=== PATIENT | male | born 1990 | race Two or more races ===

== ENCOUNTER 2020-10-01 21:38 | Emergency (ER) | payer MEDICAID ==
[~2020-10-01] VITALS: Ht 170.2 cm; Wt 75.7 kg
[2020-10-02 01:28] VITALS: BP 111/62
== END 2020-10-02 02:10 | disposition home or self-care (01) ==
LOC: ER 21:41
DX: L02.416 Cutaneous abscess of left lower limb (principal); L03.116 Cellulitis of left lower limb; F17.210 Nicotine dependence, cigarettes, uncomplicated

== ENCOUNTER 2020-10-07 14:14 | Inpatient (IN) | payer MEDICAID ==
[~2020-10-07] VITALS: Ht 170.2 cm; Wt 72.6 kg
[2020-10-08] MEDS ORDERED: CLINDAMYCIN 600MG IV 50 ML IV ONE (08:15)
[2020-10-08] MEDS ORDERED: KETOROLAC TROMETH 30 MG/ML 1ML VIAL IV ONE (08:15)
[2020-10-08] MEDS ORDERED: cefTRIAXone 1GM/50ML D5W 50 ML IV SCH (09:30)
[2020-10-08] MEDS ORDERED: ONDANSETRON HCL 4 MG/2 ML VIAL IV PRN (09:30)
[2020-10-08] MEDS ORDERED: HYDROcodone-ACET 5/325MG TAB PO PRN (09:30)
[2020-10-08] MEDS ORDERED: LORazepam 2MG/ML-1ML VIAL IV PRN (09:30)
[2020-10-08] MEDS ORDERED: ACETAMINOPHEN 500 MG TAB PO PRN (09:30)
[2020-10-08] MEDS ORDERED: MORPHINE SULF INJ 2 MG/ML SYRINGE 1ML IV PRN (09:30)
[2020-10-08] MEDS ORDERED: FAMOTIDINE 20 MG TAB PO SCH (10:00)
[2020-10-08 13:42] VITALS: BP 105/89
[2020-10-08] MEDS ORDERED: CLINDAMYCIN 300MG IV 50 ML IV SCH (14:00)
--- NOTE | 2020-10-08 16:50 | NUR ---
WOUND CARE NOTE: Wound care attempted to see patient per wound care request regarding LLE Cellult[facility]. Unable to locate patient. Nurse and electrical power station technician made aware.
== END 2020-10-08 17:02 | disposition left against medical advice (07) | DRG 383 ==
LOC: ER 14:14 → OVERFLOW 14:15
PROVIDERS: ADMIT Nurse Practitioner Acute Care; ATTEND Nurse Practitioner Acute Care
DX: L03.116 Cellulitis of left lower limb (principal); F17.210 Nicotine dependence, cigarettes, uncomplicated; Z59.0 Homelessness; L02.416 Cutaneous abscess of left lower limb; F10.10 Alcohol abuse, uncomplicated; Y90.9 Presence of alcohol in blood, level not specified; F12.10 Cannabis abuse, uncomplicated; F11.10 Opioid abuse, uncomplicated
CPT/HCPCS: 71045; 73700; G0378; J3490

== ENCOUNTER 2020-10-09 18:15 | Emergency (ER) | payer MEDICAID | END 2020-10-09 19:38 | disposition left against medical advice (07) | LOC: ER 18:16 | DX: L02.419 Cutaneous abscess of limb, unspecified (principal); Z53.21 Procedure and treatment not carried out due to patient leaving prior to being seen by health care provider ==

== ENCOUNTER 2022-10-01 06:20 | Emergency (ER) | payer MEDICAID ==
[~2022-10-01] VITALS: Ht 167.6 cm; Wt 68.0 kg
[2022-10-01] MEDS ORDERED: IOHEXOL 300 MG/ML 100ML BOTTLE IJ ONE (08:29)
[2022-10-01] MEDS ORDERED: SODIUM CHLORIDE 0.9% 1,000 ML IV ONE (08:30)
[2022-10-01] MEDS ORDERED: ETOMIDATE (2MG/ML) 20ML VIAL IV ONE (08:30)
[2022-10-01] MEDS ORDERED: HYDROcodone-ACET 10/325MG TAB PO ONE (12:00)
[2022-10-01] MEDS ORDERED: IBU600T PO (12:28)
[2022-10-01 13:10] VITALS: BP 127/81
== END 2022-10-01 12:28 | disposition home or self-care (01) ==
LOC: EDBD 06:20 → ER 06:20
DX: S52.502A Unspecified fracture of the lower end of left radius, initial encounter for closed fracture (principal); S52.612A Displaced fracture of left ulna styloid process, initial encounter for closed fracture; F17.210 Nicotine dependence, cigarettes, uncomplicated; F10.90 Alcohol use, unspecified, uncomplicated; F15.90 Other stimulant use, unspecified, uncomplicated; Z59.00 Homelessness unspecified; W18.30XA Fall on same level, unspecified, initial encounter; Y93.01 Activity, walking, marching and hiking; Y92.410 Unspecified street and highway as the place of occurrence of the external cause; Y99.8 Other external cause status
CPT/HCPCS: 25605; 70450; 71260; 73110; 73552; 74177; 96360; 96361; 99152; 99285; Q9967; 29125; 96374